=== PATIENT | male | born 1960 | race Caucasian/White ===

== ENCOUNTER 2017-03-21 08:40 | Emergency (ER) | payer OTHER, MEDICARE, MEDICAID ==
[~2017-03-21] VITALS: Ht 180.3 cm; Wt 98.0 kg
[~2017-03-21 08:40] MED LIST: ANAF50CA PO; BACT800T5 PO; BENZ1TAB PO; CLOZ100 PO; DICL75TA PO; DOXE50CA3 PO; FLON0.053; HIGHTAB3 PO; LAMI100T PO; LIPI10TA PO; PROT40TA PO; RISP2TAB2 PO; SERT100 PO
[2017-03-21 08:46] VITALS: BP 138/85; PULSE 94; RESP 13; TEMP 97.9; O2SAT 95
[2017-03-21] MEDS ORDERED: TETANUS/DIPHTHERIA TOXOID ADULT 0.5 ML VIAL IM ONE (09:00)
[2017-03-21] MEDS ORDERED: IBUPROFEN 600 MG TAB PO ONE (09:00)
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
[2017-03-21] MEDS ORDERED: BENZ0.5T PO (11:32)
[2017-03-21] MEDS ORDERED: RISP2TAB37 PO (11:32)
[2017-03-21] MEDS ORDERED: PANT40TA3 PO (11:32)
[2017-03-21] MEDS ORDERED: KETOC2%T TOPICAL (11:32)
[2017-03-21] MEDS ORDERED: CLOZ100T3 PO ×2 (11:32)
[2017-03-21] MEDS ORDERED: CLOM50CA PO (11:32)
[2017-03-21] MEDS ORDERED: ATOR20TA15 PO (11:32)
[2017-03-21] MEDS ORDERED: FLUT50SP EACH NARE (11:32)
[2017-03-21] MEDS ORDERED: SERT-129 PO (11:32)
[2017-03-21] MEDS ORDERED: DOXE50CA3 PO (11:32)
[2017-03-21] MEDS ORDERED: FENO48TA PO (11:32)
[2017-03-21] MEDS ORDERED: [UNRECOGNIZED DRUG - CODE] PO (11:32)
[2017-03-21] MEDS ORDERED: LAMO100T68 PO (11:32)
[2017-03-21] MEDS ORDERED: FERR325T18 PO (11:32)
[2017-03-21] MEDS ORDERED: HYDR-3516 PO (11:52)
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
[2017-03-21] MEDS ORDERED: ACETAMINOPHEN/HYDROcodone 325 MG/5 MG TAB PO ONE (12:00)
== END 2017-03-21 13:54 | disposition home or self-care (01) ==
LOC: NEPC 08:40
DX: S42.201A Unspecified fracture of upper end of right humerus, initial encounter for closed fracture (principal); S51.011A Laceration without foreign body of right elbow, initial encounter; V03.10XA Pedestrian on foot injured in collision with car, pick-up truck or van in traffic accident, initial encounter; Y93.02 Activity, running; Y92.410 Unspecified street and highway as the place of occurrence of the external cause; Z23 Encounter for immunization
CPT/HCPCS: 71010; 73030; 73080; 90471; 90714

== ENCOUNTER 2017-04-15 06:50 | Observation (INO) | payer MEDICARE, MEDICAID ==
[~2017-04-15] VITALS: Ht 180.3 cm; Wt 97.9 kg
[~2017-04-15 06:50] MED LIST changes: -ANAF50CA PO; +ATOR20TA15 PO; +BENZ0.5T PO; -BENZ1TAB PO; +CLOM50CA PO; -CLOZ100 PO; +CLOZ100T3 PO; +FENO48TA PO; +FERR325T18 PO; -FLON0.053; +FLUT50SP EACH NARE; -HIGHTAB3 PO; +HYDR-3516 PO; +KETOC2%T TOPICAL; -LAMI100T PO; +LAMO100T68 PO; -LIPI10TA PO; +PANT40TA3 PO; -PROT40TA PO; -RISP2TAB2 PO; +RISP2TAB37 PO; +SERT-129 PO; -SERT100 PO; +[UNRECOGNIZED DRUG - CODE] PO
[2017-04-15] MEDS ORDERED: METOPROLOL TARTRATE 25 MG TAB PO PRN (07:30)
[2017-04-15] MEDS ORDERED: SODIUM CHLORID 0.9% 500 ML IV PRN (07:30)
[2017-04-15] MEDS ORDERED: CHLORHEXIDINE GLUCONATE 2 % 1 PACK (2 CLOTHS) TOPICAL PRN (07:30)
[2017-04-15] MEDS ORDERED: POVIDONE IODINE 5% (ANTISEPSIS KIT) 4 APPLICATIONS EACH NARE PRN (07:30)
[2017-04-15] MEDS ORDERED: VANCOMYCIN 1000 MG/NS 250 ML (for <70 kg) IV SCH ×2 (07:30)
[2017-04-15] MEDS ORDERED: LACTATED RINGER'S 1000 ML IV PRN (07:30)
[2017-04-15] MEDS ORDERED: ceFAZolin 2 GM PREMIX 50 ML IV SCH (07:30)
[2017-04-15] MEDS ORDERED: CHLORHEXIDINE GLUCONATE 4% SOLN 120 ML BTL TOPICAL SCH (07:30)
[2017-04-15] MEDS ORDERED: TRIAPOW6 (08:28)
[2017-04-15] MEDS ORDERED: TRIA1MIS TOPICAL (08:28)
[2017-04-15] MEDS ORDERED: ASPI81TA23 PO (08:28)
[2017-04-15] MEDS: VANCOMYCIN HCL 1000 MG VIAL ONE ×2 (09:20→10:55)
[2017-04-15 09:39] LABS: AUTOMATED NEUTROPHIL # 12.6 TH/MM3 (1.8-7.7); BASOPHIL # 0.1 TH/MM3 (0-0.2); BASOPHIL % 0.7 % (0.0-2.0); EOSINOPHIL # 0.1 TH/MM3 (0-0.4); EOSINOPHIL % 0.6 % (0.0-4.0); HEMATOCRIT 35.5 % (39.0-51.0); HEMO FLAGS DIFF FINAL; LYMPH % 6.7 % (9.0-44.0); MEAN CELL VOLUME 86.4 FL (80.0-100.0); MEAN CORPUSCULAR HEMOGLOBIN 28.3 PG (27.0-34.0); MEAN CORPUSCULAR HGB CONC 32.8 % (32.0-36.0); MONO % 5.3 % (0.0-8.0); NEUT % 86.7 % (16.0-70.0); PLATELET COUNT 383 TH/MM3 (150-450); RED BLOOD COUNT 4.11 MIL/MM3 (4.50-5.90); RED CELL DISTRIBUTION WIDTH 13.7 % (11.6-17.2); WHITE BLOOD COUNT 14.6 TH/MM3 (4.0-11.0)
[2017-04-15] MEDS ORDERED: ACETAMINOPHEN 1000 MG/100 ML 100 ML IV ONE (09:46)
[2017-04-15 09:51] LABS: PROTHROMBIN TIME - PATIENT 10.6 SEC (9.8-11.6)
[2017-04-15] MEDS ORDERED: HYDR-3580 PO (09:56)
--- NOTE | 2017-04-15 09:57 | HHI.FF ---
Face to Face Verification Diagnosis: (1) Proximal humerus fracture Occupational Therapy Right UE Weight Bearing: Non WB Right UE Range of Motion: Pendular Nursing Dressing Changes: Daily dressing change, 4x4s, Paper tape, Xeroform I have seen patient Wallace Bustamante on 04/15/17. My clinical findings support the need for the requested home health care services because: Ltd mobility - disease progression I certify that my clinical findings support that this patient is homebound because: Post-op weakness Eliceo Gongora/Recovery Specialist PA Apr 15, 2017 09:57
[2017-04-15 09:59] LABS: BICARBONATE 26.6 MEQ/L (21.0-32.0); POTASSIUM 4.4 MEQ/L (3.5-5.1)
[2017-04-15] MEDS ORDERED: GENTAMICIN SULFATE 80 MG/2 ML VIAL ONE (10:03)
[2017-04-15] MEDS ORDERED: GLYCOPYRROLATE 1 MG/5 ML SYRINGE IV PUSH ONE (12:00)
[2017-04-15] MEDS ORDERED: NEOSTIGMINE 5 MG/5 ML SYRINGE IV PUSH ONE (12:00)
[2017-04-15] MEDS ORDERED: LIDOCAINE HCL 1% PF 5 ML SYRINGE OTHER ONE (12:00)
[2017-04-15] MEDS ORDERED: MORPHINE SULFATE 4 MG/ML INJ IV ONE (12:00)
[2017-04-15] MEDS ORDERED: PHENYLEPH/NS 1000 MCG/10 ML SYR IV ONE (12:00)
[2017-04-15] MEDS ORDERED: ROCURONIUM INJ 50 MG/5 ML SYRINGE IV PUSH ONE (12:00)
[2017-04-15] MEDS ORDERED: ePHEDrine/NS 25 MG/5 ML SYR IV ONE (12:00)
[2017-04-15] MEDS ORDERED: ONDANSETRON HCL 4 MG/2 ML VIAL IV PUSH ONE (12:00)
[2017-04-15] MEDS ORDERED: PROPOFOL 200 MG/20 ML AMP IV ONE (12:00)
--- NOTE | 2017-04-15 12:08 | PD.OP ---
cc: Nima Cash MD Operative Report Date of Surgery: Apr 15, 2017 Preoperative Diagnosis: Displaced right proximal humerus fracture Postoperative Diagnosis: Procedure: Open reduction internal fixation right proximal humerus Anesthesia: Gen. Surgeon: Nima Cash Grid Molder(s): IGNACIA Kennedy PA-C The surgical procedure was assisted by my physician enrichment assistant. My P.A. presence was necessary throughout this case for the manipulation and positioning of the surgical extremity. My P.A. was assisting me throughout the duration of this procedure. The skill set of a physician enrichment assistant was medically necessary to complete this procedure. During the surgical case the surgical device sales representative was working at the back table and the physician enrichment assistant was directly assisting me. Operation and Findings: Patient was seen and evaluated preoperatively. Patient was found to have a displaced right proximal humerus fracture. The risks and benefits of surgical and nonsurgical options were discussed in detail and informed consent was obtained for surgery. Patient was brought to the operating room and placed on or table. IV sedation and GETA were administered by anesthesiologist. Antibiotics were given prior to incision. Operative arm and shoulder were prepped with alcohol followed by Hibiclens and draped usual sterile fashion. Timeout procedure was performed. Procedure began with a 3 inch incision over the lateral shoulder. A deltoid splitting approach was utilized. The subdeltoid space was now identified and mobilized. The fracture was now visualized. Soft tissue was retracted. A #5 FiberWire suture was placed into the rotator rotator cuff and greater tuberosity. Attention was now turned to reduction. Gentle traction was applied. The humeral shaft and humeral head were manipulated to aid in reduction. The greater tuberosity fragment and rotator cuff were mobilized to aid in reduction. Fracture reduced into a well aligned position. There is also a small fragment of bone within the joint. A pituitary rongeur was used to remove a bone fragment. Fracture was manipulated to achieve excellent reduction. Multiplanar fluoroscopy confirmed well aligned fracture. Multiple K wires were used to hold provisional fixation. A Synthes 3.5 plate was selected. Plate was provisionally held in place K wires. 3.5 cortical screws were used to compress plate to bone. Fluoroscopy confirmed appropriate plate placement and fracture reduction. 3 locking screws were now placed in the humeral head. Screws were predrilled and premeasured for appropriate length. Care was taken not to penetrate the articular surface. Additional screws were placed in the humeral shaft. The FiberWire suture was passed through the holes of the plate and sutured to the plate for additional stability. Final fluoroscopy revealed well aligned fracture with well-placed hardware. Wound was thoroughly irrigated. Fascia was closed with #1 Vicryl, subcutaneous tissues closed with 3-0 Vicryl, and skin was closed with scott. Sterile dressings were applied. Patient was placed into a sling. Patient was awakened and transferred to recovery in stable condition. Needle and sponge counts were correct. Nima Cash MD Apr 15, 2017 12:08
[2017-04-15] MEDS ORDERED: diphenhydrAMINE HCL 25 MG CAP PO PRN (12:15)
[2017-04-15] MEDS ORDERED: ONDANSETRON HCL 4 MG/2 ML VIAL IVP PRN (12:15)
[2017-04-15] MEDS ORDERED: DO NOT ADM ANY ANTICOAGULANT DRUGS PRN (12:28)
[2017-04-15] MEDS ORDERED: *morphine SULFATE 8 MG/ML PERIprocedure ONLY ONE ×2 (13:04→13:42)
[2017-04-15] MEDS ORDERED: ERGOCALCIFEROL (VIT D2) 50,000 UNIT CAP PO SCH (15:00)
[2017-04-15] MEDS: MORPHINE SULFATE 4 MG/ML INJ IV PUSH PRN ×2 (15:30→18:45)
[2017-04-15] MEDS: CALCIUM/VITAMIN D 250 MG/125 U TAB PO SCH (15:31)
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
--- NOTE | 2017-04-15 18:59 | EKG ---
Date Performed: 04/15/2017 Time Performed: 09:59:02 PTAGE: 57 years EKG: Sinus rhythm NONSPECIFIC T-WAVE ABNORMALITY Since previous tracing, no significant change noted BORDERLINE ECG PREVIOUS TRACING : 01/22/2016 22.36 DOCTOR: Wallace Perez Interpretating Date/Time 04/15/2017 18:57:48
[2017-04-15 19:55] VITALS: BP 119/78; PULSE 72; RESP 18; TEMP 96.9; O2SAT 97
[2017-04-15] MEDS: ceFAZolin 2 GM PREMIX 50 ML IV SCH (20:33)
[2017-04-15] MEDS: BENZTROPINE MESYLATE 1 MG TAB PO SCH (20:33)
[2017-04-15] MEDS: DOCUSATE SODIUM 50 MG/SENNA 8.6 MG TAB PO SCH (20:34)
[2017-04-15] MEDS: lamoTRIgine 100 MG TAB PO SCH (20:35)
[2017-04-15] MEDS: risperiDONE 1 MG TAB PO SCH (20:35)
[2017-04-15] MEDS ORDERED: CLOMIPRAMINE 50 MG PO SCH (21:00)
[2017-04-15] MEDS ORDERED: cloZAPine 100 MG TAB PO SCH (21:00)
[2017-04-15] MEDS ORDERED: DOXEPIN HCL 50 MG CAP PO SCH (21:00)
[2017-04-15] MEDS ORDERED: ATORVASTATIN 20 MG TAB PO SCH (21:00)
[2017-04-15] MEDS ORDERED: MAGNESIUM HYDROXIDE SUSP 30 ML CUP PO PRN (23:45)
[2017-04-16 01:10] VITALS: BP 123/74; PULSE 98; RESP 18; TEMP 97.4; O2SAT 92
[2017-04-16] MEDS: ceFAZolin 2 GM PREMIX 50 ML IV SCH (03:17)
[2017-04-16 04:04] VITALS: BP 106/75; PULSE 84; RESP 18; TEMP 97.6; O2SAT 95
[2017-04-16] MEDS: ACETAMINOPHEN/HYDROcodone 325 MG/10 MG TAB PO PRN ×3 (04:10→11:14)
[2017-04-16 08:00] VITALS: BP 148/89; PULSE 101; RESP 18; TEMP 97; O2SAT 92
[2017-04-16] MEDS: CALCIUM/VITAMIN D 250 MG/125 U TAB PO SCH (08:18)
[2017-04-16] MEDS: lamoTRIgine 100 MG TAB PO SCH (08:19)
[2017-04-16] MEDS: DOCUSATE SODIUM 50 MG/SENNA 8.6 MG TAB PO SCH (08:20)
[2017-04-16] MEDS: BENZTROPINE MESYLATE 1 MG TAB PO SCH (08:20)
[2017-04-16] MEDS: risperiDONE 1 MG TAB PO SCH (08:20)
--- NOTE | 2017-04-16 08:38 | PD.ORT.PN ---
Subjective Subjective Remarks Resting comfortably with pain controlled Objective Vitals Vital Signs Date Time Temp Pulse Resp B/P (MAP) Pulse Ox O2 Delivery O2 Flow Rate FiO2 04/16/17 04:04 97.6 84 18 106/75 (85) 95 04/16/17 01:10 97.4 98 18 123/74 (90) 92 04/15/17 19:55 96.9 72 18 119/78 (92) 97 04/15/17 14:22 98.1 103 20 114/78 (90) 98 Nasal Cannula 2 04/15/17 13:30 97 20 121/83 (96) 96 Nasal Cannula 2 04/15/17 13:15 97 20 134/82 (99) 96 Nasal Cannula 2 04/15/17 13:00 100 20 163/86 (111) 96 Nasal Cannula 2 04/15/17 12:45 101 20 169/89 (115) 93 Nasal Cannula 2 04/15/17 12:28 98.1 96 20 127/74 (91) 90 Nasal Cannula 2 04/15/17 08:50 98.3 101 18 128/90 (103) 96 I/O 04/15/17 04/15/17 04/15/17 04/16/17 04/16/17 04/16/17 07:00 15:00 23:00 07:00 15:00 23:00 Intake Total 900 ml 530 ml 290 ml Output Total 50 ml 250 ml Balance 850 ml 530 ml 40 ml Intake Oral 480 ml 240 ml IV Total 50 ml 50 ml Other 900 ml Output Urine Total 250 ml Estimated Blood Loss 50 ml # Voids 1 # Bowel Movements 0 0 Result Diagram: 04/15/17 0900 04/15/17 0900 Other Results Laboratory Tests Test 04/15/17 09:00 Prothromb Time International Ratio 1.0 RATIO Prothrombin Time 10.6 SEC (9.8-11.6) Imaging Last 72 hours Impressions Shoulder X-Ray 04/15/17 0000 Signed Impressions: Service Date/Time: Saturday, April 15, 2017 11:51 - CONCLUSION: Satisfactory post operative appearance of the right shoulder following ORIF of a humeral neck fracture. Gal King MD Objective Remarks Right upper extremity: Clean dressings with mild drainage. Abduction sling in position. Distally neurovascularly intact Assessment & Plan Assessment and Plan Right greater tuberosity fracture status post ORIF POD 1 Case management to address discharge to [facility]. If they are able to accommodate and moved to first floor discharge today. If unable to be discharged today transfer to another floor due to shingles. Nonweightbearing right upper extremity Follow-up with Dr. Cash or PA in 2-3 weeks Jun Adair Jr. Apr 16, 2017 08:38
[2017-04-16] MEDS ORDERED: FERROUS SULFATE 325 MG (65 MG ELEMENTAL IRON) TAB PO SCH (09:00)
[2017-04-16] MEDS ORDERED: cloZAPine 100 MG TAB PO SCH (09:00)
[2017-04-16] MEDS ORDERED: PANTOPRAZOLE SOD 40 MG DELAYED RELEASE TAB PO SCH (09:00)
[2017-04-16] MEDS ORDERED: FLUTICASONE PROPIONATE 50 MCG/ACT 16 GM NASAL SPRAY EACH NARE SCH (09:00)
[2017-04-16] MEDS ORDERED: SERTRALINE HCL 100 MG TAB PO SCH (09:00)
[2017-04-16] MEDS ORDERED: CHOLECALCIFEROL (VIT D3) 1000 UNIT TAB PO SCH (09:00)
[2017-04-16] MEDS ORDERED: FENOFIBRATE 48 MG TAB PO SCH (09:00)
[2017-04-16] MEDS ORDERED: ASPIRIN EC 81 MG TABEC PO SCH (09:00)
== END 2017-04-16 12:18 ==
LOC: HSDC 06:50 → HSDI 12:09 → N06A 14:32
PROVIDERS: ADMIT Orthopaedic Surgery Orthopaedic Trauma; ATTEND Orthopaedic Surgery Orthopaedic Trauma
DX: S42.251A Displaced fracture of greater tuberosity of right humerus, initial encounter for closed fracture (principal); Z01.810 Encounter for preprocedural cardiovascular examination; E78.00 Pure hypercholesterolemia, unspecified; K21.9 Gastro-esophageal reflux disease without esophagitis; F32.9 Major depressive disorder, single episode, unspecified; M19.90 Unspecified osteoarthritis, unspecified site; Z87.891 Personal history of nicotine dependence; V09.9XXA Pedestrian injured in unspecified transport accident, initial encounter
CPT/HCPCS: 01630; 23615; 73030; 76000; 80048; 85025; 85610; 93005; C1713; G0378; J0131; J0690; J1580; J2270; J2370; J2405; J2710; J3010; J3370; J7050; J7120

== ENCOUNTER 2017-05-21 11:26 | Emergency (ER) | payer MEDICARE, MEDICAID ==
[~2017-05-21] VITALS: Ht 180.3 cm; Wt 92.7 kg
[~2017-05-21 11:26] MED LIST changes: +ASPI81TA23 PO; -DICL75TA PO; -HYDR-3516 PO; +HYDR-3580 PO; +TRIA1MIS TOPICAL; -[UNRECOGNIZED DRUG - CODE] PO
[2017-05-21 11:28] VITALS: BP 136/93; PULSE 107; RESP 16; TEMP 98.3; O2SAT 98
[2017-05-21 12:29] LABS: AUTOMATED NEUTROPHIL # 8.5 TH/MM3 (1.8-7.7); BASOPHIL # 0.1 TH/MM3 (0-0.2); BASOPHIL % 0.6 % (0.0-2.0); EOSINOPHIL # 0.1 TH/MM3 (0-0.4); EOSINOPHIL % 1.3 % (0.0-4.0); HEMATOCRIT 38.5 % (39.0-51.0); HEMOGLOBIN 12.9 GM/DL (13.0-17.0); LYMPHOCYTE # 1.5 TH/MM3 (1.0-4.8); MEAN CELL VOLUME 85.6 FL (80.0-100.0); MEAN CORPUSCULAR HEMOGLOBIN 28.6 PG (27.0-34.0); MEAN CORPUSCULAR HGB CONC 33.4 % (32.0-36.0); MEAN PLATELET VOLUME 8.1 FL (7.0-11.0); MONOCYTE # 0.5 TH/MM3 (0-0.9); NEUT % 79.1 % (16.0-70.0); PLATELET COUNT 382 TH/MM3 (150-450); RED CELL DISTRIBUTION WIDTH 13.8 % (11.6-17.2); WHITE BLOOD COUNT 10.8 TH/MM3 (4.0-11.0)
[2017-05-21 12:40] LABS: ALBUMIN 4.3 GM/DL (3.4-5.0); AST (GOT) 11 U/L (15-37); BICARBONATE 26.9 MEQ/L (21.0-32.0); BLOOD UREA NITROGEN 16 MG/DL (7-18); CALCIUM 9.6 MG/DL (8.5-10.1); CHLORIDE 106 MEQ/L (98-107); CREATININE 1.28 MG/DL (0.60-1.30); GLOMERULAR FILTRATION RATE 58 ML/MIN (>89); GLUCOSE,RANDOM 94 MG/DL (74-106); MAGNESIUM 2.2 MG/DL (1.5-2.5); SODIUM (NA) 140 MEQ/L (136-145)
[2017-05-21 12:41] LABS: ALT (GPT) 24 U/L (12-78)
[2017-05-21 12:42] LABS: PROTHROMBIN TIME - PATIENT 10.1 SEC (9.8-11.6)
[2017-05-21 12:45] LABS: ALKALINE PHOSPHATASE 118 U/L (45-117); TOTAL BILIRUBIN ADULT 0.3 MG/DL (0.2-1.0); TOTAL PROTEIN 8.3 GM/DL (6.4-8.2); TROPONIN I LESS THAN 0.02 NG/ML (0.02-0.05)
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
[2017-05-21] MEDS ORDERED: MECLIZINE HCL 25 MG TAB PO ONE (13:00)
[2017-05-21] MEDS ORDERED: SODIUM CHLORIDE 0.9% FLUSH 10 ML FLUSH IVF PRN (13:00)
[2017-05-21] MEDS ORDERED: SODIUM CHLOR 0.9% 1000 ML INJ 1,000 ML IV ONE (13:00)
--- NOTE | 2017-05-21 13:04 | RADRPT ---
EXAM DATE/TIME: 05/21/2017 12:38 [facility] COMPARISON: CT BRAIN W/O CONTRAST, April 11, 2013, 11:51. INDICATIONS : Dizziness when bending down for two days. RADIATION DOSE: 37.96 CTDIvol (mGy) MEDICAL HISTORY : None SURGICAL HISTORY : None. ENCOUNTER: Initial ACUITY: 2 days PAIN SCALE: 0/10 LOCATION: cranial TECHNIQUE: Multiple contiguous axial images were obtained of the head. Using automated exposure control and adj ustment of the mA and/or kV according to patient size, radiation dose was kept as low as reasonably a chievable to obtain optimal diagnostic quality images. DICOM format image data is available electro nically for review and comparison. FINDINGS: CEREBRUM: The ventricles are normal for age. No evidence of midline shift, mass lesion, hemorrhage or acute in farction. No extra-axial fluid collections are seen. POSTERIOR FOSSA: The cerebellum and brainstem are intact. The 4th ventricle is midline. The cerebellopontine angle i s unremarkable. EXTRACRANIAL: The visualized portion of the orbits is intact. SKULL: The calvaria is intact. No evidence of skull fracture. CONCLUSION: Normal examination. Wallace Hills MD on May 21, 2017 at 13:01 Board Certified Radiologist. This report was verified electronically.
--- NOTE | 2017-05-21 13:20 | RADRPT ---
EXAM DATE/TIME: 05/21/2017 13:15 [facility] COMPARISON: CHEST SINGLE AP, March 21, 2017, 9:12. INDICATIONS : Cough, dizziness. MEDICAL HISTORY : vertigo SURGICAL HISTORY : None. ENCOUNTER: Initial ACUITY: 1 day PAIN SCORE: 0/10 LOCATION: Bilateral chest FINDINGS: Portable AP view the chest demonstrates a normal-sized cardiac silhouette. Lungs are mildly underinfl ated with mild bibasilar opacity. Multiple EKG lines overlie the patient. No pleural effusion or pneu mothorax is visualized. Bones and soft tissues demonstrate no acute finding. There is right proximal humerus hardware. CONCLUSION: Underinflation and mild bibasilar opacity most likely representing atelectasis. Deepak Yip MD on May 21, 2017 at 13:16 Board Certified Radiologist. This report was verified electronically.
[2017-05-21 13:38] VITALS: BP_SYST 156; BP_SYST 162; BP_SYST 163; BP_DIAS 87; BP_DIAS 97; BP_DIAS 98; RESP 14; RESP 17; RESP 19
[2017-05-21] MEDS ORDERED: DOXY100C PO (13:40)
--- NOTE | 2017-05-22 23:19 | EKG ---
Date Performed: 05/21/2017 Time Performed: 12:13:52 PTAGE: 57 years EKG: SINUS TACHYCARDIA ABNORMAL RHYTHM ECG PREVIOUS TRACING : 04/15/2017 09.59 Since previous tracing, no significant change noted DOCTOR: Tayo Forrest Interpretating Date/Time 05/22/2017 23:18:57
== END 2017-05-21 14:15 | disposition home or self-care (01) ==
LOC: NEPC 11:26
DX: R42 Dizziness and giddiness (principal); J18.9 Pneumonia, unspecified organism; R00.0 Tachycardia, unspecified; R94.31 Abnormal electrocardiogram [ECG] [EKG]; F20.9 Schizophrenia, unspecified; M19.90 Unspecified osteoarthritis, unspecified site; E78.00 Pure hypercholesterolemia, unspecified; I10 Essential (primary) hypertension; G62.9 Polyneuropathy, unspecified
CPT/HCPCS: 70450; 71045; 80053; 82550; 83735; 84484; 85025; 85610; 85730; 93005; 96360; 99285; J7030

== ENCOUNTER 2017-07-08 14:30 | Emergency (ER) | payer MEDICARE, MEDICAID ==
[~2017-07-08 14:30] MED LIST changes: +DOXY100C PO
[2017-07-08 15:14] VITALS: BP 144/79; PULSE 98; RESP 18; TEMP 98.3; O2SAT 96
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
[2017-07-08] MEDS ORDERED: NAPR500 PO (18:35)
== END 2017-07-08 19:03 | disposition home or self-care (01) ==
LOC: NEPK 14:30
DX: S20.212A Contusion of left front wall of thorax, initial encounter (principal); W19.XXXA Unspecified fall, initial encounter
CPT/HCPCS: 71046; 99283